=== PATIENT | female | born 1945 | race Caucasian/White ===

== ENCOUNTER 2017-04-28 18:05 | Inpatient (IN) | payer MEDICARE ==
[~2017-04-28] VITALS: Ht 167.6 cm; Wt 81.6 kg
[2017-04-28 20:00] VITALS: BP 121/60; RESP 18; Ht 167.6 cm; Wt 81.6 kg
[2017-04-28] MEDS ORDERED: LORAZEPAM 0.5 MG TAB PO PRN (20:00)
[2017-04-28] MEDS: BUPROPION (SR) 150 MG TAB PO SCH (21:16)
[2017-04-28] MEDS: ATORVASTATIN 20 MG TAB PO SCH (21:16)
[2017-04-28] MEDS: traZODone 100 MG TAB PO SCH (21:17)
[2017-04-28] MEDS: RISPERIDONE 0.25 MG TAB PO SCH (21:17)
[2017-04-28] MEDS: FAMOTIDINE 20 MG TAB PO SCH (21:17)
[2017-04-28 23:28] LABS: ADD UMIC YES; UR ASCORBIC ACID NEGATIVE (NEGATIVE); UR BACTERIA FEW /HPF (NONE SEEN); UR BILIRUBIN (Dip) NEGATIVE (NEGATIVE); UR BLOOD (Dip) NEGATIVE (NEGATIVE); UR CLARITY CLEAR (CLEAR); UR COLOR YELLOW (YELLOW); UR GLUCOSE (Dip) NEGATIVE (NEGATIVE); UR KETONES (Dip) NEGATIVE (NEGATIVE); UR LEUKOCYTE ESTERASE (Dip) 2+ Leu/ul (NEGATIVE); UR MUCUS FEW /HPF (NONE SEEN); UR NITRITE (Dip) NEGATIVE (NEGATIVE); UR RBC 3 /HPF (0-5); UR SPECIFIC GRAVITY (Dip) 1.015 (1.003-1.030); UR SQUAMOUS EPITHELIAL CELL FEW /HPF (FEW); UR TOTAL PROTEIN (Dip) NEGATIVE (NEGATIVE); UR UROBILINOGEN (Dip) 2+ mg/dL (NEGATIVE)
[2017-04-29] MEDS ORDERED: LACTULOSE 30ML CUP PO PRN (00:30)
[2017-04-29] MEDS ORDERED: ACETAMINOPHEN 325 MG TAB PO PRN (00:30)
[2017-04-29] MEDS ORDERED: BISACODYL 10 MG SUPP PR PRN (00:30)
[2017-04-29] MEDS ORDERED: MAGNESIUM HYDROXIDE 30ML CUP PO PRN (00:30)
[2017-04-29 02:00] VITALS: BP 128/64; RESP 18
[2017-04-29 07:06] LABS: BASOPHILS % 0.7 % (0.0-2.0); EOSINOPHILS # 0.2 10^3/ul (0.0-0.5); EOSINOPHILS % 3.8 % (0.0-7.0); HEMATOCRIT 40.7 % (37.0-47.0); HEMOGLOBIN 13.4 g/dl (12.0-16.0); LYMPHOCYTES # 1.5 10^3/ul (0.8-2.9); MEAN CORPUSCULAR HEMOGLOBIN 35.1 pg (29.0-33.0); MEAN CORPUSCULAR HGB CONC 32.9 g/dl (32.0-37.0); MEAN CORPUSCULAR VOLUME 106.5 fl (82.0-101.0); MEAN PLATELET VOLUME 9.9 fl (7.4-10.4); MONOCYTE # 0.8 10^3/ul (0.3-0.9); MONOCYTES % 13.7 % (0.0-11.0); NEUTROPHIL # 3.4 10^3/ul (1.6-7.5); NEUTROPHILS % 56.5 % (39.0-77.0); PLATELET COUNT 160 10^3/UL (140-415); RED BLOOD COUNT 3.82 10^6/ul (4.20-5.40); RED CELL DISTRIBUTION WIDTH 13.2 % (11.5-14.5); WHITE BLOOD COUNT 6.1 10^3/ul (4.8-10.8)
[2017-04-29 07:27] LABS: ALBUMIN 2.8 g/dl (3.3-4.9); ALBUMIN/GLOBULIN RATIO 0.82; BILIRUBIN,INDIRECT 0.3 mg/dl (0-1.1); BILIRUBIN,TOTAL 0.3 mg/dl (0.2-1.3); CALCIUM 9.1 mg/dl (8.4-10.2); CREATININE 0.64 mg/dl (0.44-1.00); TOTAL PROTEIN 6.2 g/dl (6.1-8.1)
[2017-04-29 07:30] VITALS: BP 101/52; RESP 18
[2017-04-29] MEDS ORDERED: INFLUENZA VIRUS VACCINE 0.5 ML (DISPENSING) IM* ONE (09:00)
[2017-04-29] MEDS: DULOXETINE 30 MG CAP DR PO SCH (10:26)
[2017-04-29] MEDS: FAMOTIDINE 20 MG TAB PO SCH ×2 (10:26→20:50)
[2017-04-29] MEDS: ESCITALOPRAM 10 MG TAB PO SCH (10:26)
[2017-04-29] MEDS: DOCUSATE SODIUM 100 MG CAP PO SCH ×2 (10:27→20:50)
[2017-04-29] MEDS: ASPIRIN (EC) 81 MG TAB PO SCH (10:27)
--- NOTE | 2017-04-29 11:17 | HP ---
DATE OF ADMISSION: 04/28/2017 CHIEF COMPLAINT: CVA. HISTORY OF PRESENT ILLNESS: This is a 72-year-old female with a past medical history of dyslipidemi a who presented to an outside hospital with difficulty speaking. The patient's history began approx imately 6 days prior to admission when she had a fall. The patient described left leg tingling and numbness and unsteadiness. The patient also developed confusion and got lost driving home. The eugenio toure was then noted to have expressive aphasia and inability to stand. The patient was brought in t o an outside hospital Emergency Room where a CT scan of the head was negative for acute CVA. The lizzeth dick was seen by neurology and was clinically diagnosed with CVA. An MRI and MRA of the brain was ordered and was reported as not having any significant findings, although the actual report is not b efore me. The patient, however, had a significant decline in functional mobility from her premorbid state and as a result was transferred to [facility] acute rehab for continued care. Upon my evaluation of the patient at this time, she is currently stable. Denies any fevers, chills, nausea, vomiting, no shortness of breath. PAST MEDICAL HISTORY: History of dyslipidemia, history of depression. PAST SURGICAL HISTORY: None. ALLERGIES: NO KNOWN DRUG ALLERGIES. FAMILY HISTORY: Noncontributory. SOCIAL HISTORY: Does not drink, smoke or do drugs. MEDICATIONS: The patient's medications have been reviewed. REVIEW OF SYSTEMS: A 14-point review of systems was conducted. Pertinent positives stated in HPI, otherwise negative. PHYSICAL EXAMINATION: VITAL SIGNS: Show blood pressure 101/52, pulse , respirations , temperature 97.8. HEENT: Head is normocephalic. NECK: Supple. HEART: Regular rate. LUNGS: Show diminished breath sounds at base. ABDOMEN: Soft, nontender to palpation without rebound or guarding. EXTREMITIES: Negative for clubbing, cyanosis, edema. DERMATOLOGIC: No rashes. MUSCULOSKELETAL: No joint effusions. NEUROLOGIC: Patient has noted weakness, no obvious focal deficits. MEDICATIONS: The patient's medications have been reviewed. LABORATORY DATA: Shows white count 6.1, hemoglobin 13.4, platelet count is 160. Sodium 143, potass ium 4.0, BUN 16, creatinine 0.6, alkaline phosphatase 213. ASSESSMENT AND PLAN: This is a 72-year-old female who presents with: 1. Acute cerebrovascular accident. The patient is clinically stable. Plan is to continue current. Continue aspirin, Lipitor, continue physical therapy, monitor closely. 2. Dyslipidemia. Continue statin therapy. 3. History of fibromyalgia. Continue medical management with Cymbalta and Lexapro. 4. Depression and anxiety. Continue Lexapro and Ativan. 5. Gastrointestinal and deep venous thrombosis prophylaxis. Continue Pepcid and sequential leg squ eezers. Please note I spent over 25 minutes of face to face time with the patient and patient is FULL CODE. Dictated By: LISSET WORTHY/ARVIND Conf#: [id number] DID#: [id number]
[2017-04-29] MEDS ORDERED: PENDING SANTYL ORDER FOR WOUND CARE XX PRN (12:00)
--- NOTE | 2017-04-29 12:29 | CONS ---
DATE OF ADMISSION: 04/28/2017 DATE OF CONSULTATION: 04/29/2017 TYPE OF CONSULTATION: Rehabilitation post-admission physician evaluation. REHABILITATION IMPAIRMENT CATEGORY: Acute cerebrovascular accident. ACTIVE COMORBIDITIES: 1. Right hip contusion status post fall. 2. Fibromyalgia. 3. Hyperlipidemia. 4. Hypertension. 5. Impairments in self-care, mobility, and communication. HISTORY OF PRESENT ILLNESS: The patient is a pleasant 72-year-old right-handed female with a histor y of hyperlipidemia, who is admitted to [facility] with notable expressive aphasia and generalized weakness. The patient reportedly had been noting some facial and arm tingling and numbness along with generalized weakness. A head CT was negative for bleed. The patient was follow ed closely by neurology. MRI of the brain was also negative for bleed. The patient was noted to osborn ve significant impairments in self-care and mobility as compared to the baseline, and has been clear ed to transfer to the rehabilitation unit for comprehensive interdisciplinary rehab care. FUNCTIONAL HISTORY: Prior to recent events, she was independent in self-care tasks and mobility. C urrently, the patient requires moderate to maximal assist for self-care and mobility tasks. SOCIAL HISTORY: The patient lives with family and will return there upon discharge. PAST MEDICAL HISTORY: 1. Hyperlipidemia. 2. Fibromyalgia. CURRENT MEDICATIONS: 1. Aspirin 81 mg p.o. daily. 2. Atorvastatin 20 mg p.o. daily. 3. Bupropion 150 mg p.o. b.i.d. 4. Duloxetine 30 mg p.o. daily. 5. Escitalopram 20 mg p.o. daily. 6. Famotidine 20 mg p.o. daily. 7. Risperdal 25 mg p.o. at bedtime. 8. Trazodone 100 mg p.o. at bedtime. ALLERGIES: THE PATIENT WITH NO KNOWN DRUG ALLERGIES. PHYSICAL EXAMINATION: VITAL SIGNS: She is currently afebrile with stable vital signs. HEENT: The extraocular motions are intact. Oropharynx clear. NECK: Supple. LUNGS: Clear anteriorly. CARDIAC: S1, S2. ABDOMEN: Soft, nontender, positive bowel sounds. NEUROLOGIC: She is awake and alert. She is oriented to person and hospital. She does have short d ecreased 3 object recall. She does follow simple 1-step commands. She has antigravity strength in bilateral upper extremity and lower extremity. She does have impaired dynamic balance. PLAN: The patient has been admitted for comprehensive interdisciplinary acute rehab and is anticipa luis to tolerate 3 hours of daily therapy in divided doses for at least 5/7 days a week. The treatme nt plan will include: 1. Physical therapy to focus on bed mobility, transfers, and household ambulation with the goal of having the patient reach a standby assist level. 2. Occupational therapy to focus on hygiene, grooming, dressing, bathing, and toileting activities with the goal of having the patient reach standby assist level. 3. Speech therapy for full cognitive assessment in addition to communication assessment and trainin g with the goal of having the patient return to baseline cognition, return to baseline communication skills, and meet nutritional needs by mouth. 4. Rehabilitation nursing for carryover of therapeutic interventions, with the goal of continent of bowel and bladder, and the goal of patient and family education with regard to the aforementioned i ssues. ESTIMATED LENGTH OF STAY: 14 days. DISPOSITION GOAL: Home. I acknowledge that I performed a full physical examination on this patient within 24 hours of admiss ion to the rehabilitation unit. I believe the patient is a good candidate for comprehensive interdi sciplinary rehab care and is anticipated to make reasonable goals in a reasonable period of time as outlined above. REHABILITATION BARRIER: Right hip contusion. INTERVENTION FOR BARRIER: Interdisciplinary rehabilitation. Dictated By: XIOMARA LOPEZ/ARVIND Conf#: [id number] DID#: [id number]
[2017-04-29 14:00] VITALS: BP 116/58; RESP 18
[2017-04-29] MEDS: BUPROPION (SR) 150 MG TAB PO SCH ×2 (14:59→20:49)
[2017-04-29 20:00] VITALS: BP 117/57; RESP 18
[2017-04-29] MEDS: traZODone 100 MG TAB PO SCH (20:49)
[2017-04-29] MEDS: SENNA TAB PO SCH (20:50)
[2017-04-29] MEDS: ACETAMINOPHEN 325 MG TAB PO PRN (20:50)
[2017-04-29] MEDS: ATORVASTATIN 20 MG TAB PO SCH (20:50)
[2017-04-29] MEDS: RISPERIDONE 0.25 MG TAB PO SCH (21:00)
[2017-04-30 02:48] VITALS: BP 120/65; RESP 18
[2017-04-30 07:30] VITALS: BP 129/66; RESP 18
[2017-04-30] MEDS: ACETAMINOPHEN 325 MG TAB PO PRN (08:16)
[2017-04-30] MEDS: DULOXETINE 30 MG CAP DR PO SCH (08:17)
[2017-04-30] MEDS: ASPIRIN (EC) 81 MG TAB PO SCH (08:17)
[2017-04-30] MEDS: BUPROPION (SR) 150 MG TAB PO SCH ×2 (08:17→22:02)
[2017-04-30] MEDS: FAMOTIDINE 20 MG TAB PO SCH ×2 (08:17→22:02)
[2017-04-30] MEDS: ESCITALOPRAM 10 MG TAB PO SCH (08:17)
[2017-04-30] MEDS: DOCUSATE SODIUM 100 MG CAP PO SCH ×2 (08:17→22:03)
--- NOTE | 2017-04-30 10:18 | PN ---
DATE: 04/30/2017 SUBJECTIVE: The patient is stable. No events overnight. No fevers, chills, nausea, vomiting, no s hortness of breath. OBJECTIVE: VITAL SIGNS: Blood pressure is 120/68, respirations 18, pulse 72, temperature 98.5. HEENT: Head is normocephalic. NECK: Supple. HEART: Regular rate. LUNGS: Show diminished breath sounds at the base. ABDOMEN: Soft, nontender to palpation. No rebound or guarding. EXTREMITIES: Negative for clubbing, cyanosis, no edema. DERMATOLOGIC: No rashes. MUSCULOSKELETAL: No joint effusions. NEUROLOGIC: No change in exam. MEDICATIONS: The patient's medications have been reviewed. LABORATORY DATA: Has been reviewed. No new labs. ASSESSMENT AND PLAN: 1. Acute cerebrovascular accident. The patient is currently stable. Continue current medical zackary gement. Continue aspirin, Lipitor, physical therapy. 2. Dyslipidemia. Continue statin therapy. 3. Status fibromyalgia. Continue Cymbalta and Lexapro. 4. Depression and anxiety. Continue Lexapro, Ativan. 5. Gastrointestinal and deep venous thrombosis prophylaxis. Continue proton pump inhibitor and seq uential leg squeezers. Dictated By: LISSET WORTHY/ARVIND Conf#: [id number] DID#: [id number]
--- NOTE | 2017-04-30 11:50 | CONS ---
Date/Time of Note Date/Time of Note DATE: 04/30/17 TIME: 11:49 Consult Date/Type/Reason Admit Date/Time Apr 28, 2017 at 18:05 Initial Consult Date Subjective Patient motivated and in good spirits Objective Lungs clear abdomen soft min assist for ambulation Vital Signs Date Time Temp Pulse Resp B/P Pulse Ox O2 Delivery O2 Flow Rate FiO2 04/30/17 07:30 98.7 75 18 129/66 98 Intake and Output 04/29/17 04/29/17 04/30/17 15:00 23:00 07:00 Intake Total 420 ml 700 ml Output Total 1 ml Balance 419 ml 700 ml Results/Medications Result Diagram: 04/29/1761004/29/17610 Medications Current Medications Aspirin (Halfprin) 81 mg DAILY PO Last administered on 04/30/17 08:17; Admin Dose 81 MG; Start 04/29/17 at 09:00 Atorvastatin Calcium (Lipitor) 20 mg HS PO Last administered on 04/29/17 20: 50; Admin Dose 20 MG; Start 04/28/17 at 21:00 Bupropion HCl (Wellbutrin Sr) 150 mg BID PO Last administered on 04/30/17 08: 17; Admin Dose 150 MG; Start 04/28/17 at 21:00 Duloxetine HCl (Cymbalta) 30 mg DAILY PO Last administered on 04/30/17 08:17 ; Admin Dose 30 MG; Start 04/29/17 at 09:00 Escitalopram Oxalate (Lexapro) 20 mg DAILY PO Last administered on 04/30/17 08:17; Admin Dose 20 MG; Start 04/29/17 at 09:00 Famotidine (Pepcid) 20 mg Q12 PO Last administered on 04/30/17 08:17; Admin Dose 20 MG; Start 04/28/17 at 21:00 Lorazepam (Ativan) 0.5 mg DAILY PRN PO AGITATION/ANXIETY Last administered on 04/28/17 21:17; Admin Dose 0.5 MG; Start 04/28/17 at 20:00 Risperidone (Risperdal) 0.25 mg QHS PO Last administered on 04/29/17 21:00; Admin Dose 0.25 MG; Start 04/28/17 at 21:00 Trazodone HCl (Desyrel) 100 mg HS PO Last administered on 04/29/17 20:49; Admin Dose 100 MG; Start 04/28/17 at 21:00 Acetaminophen (Tylenol Tab) 650 mg Q4H PRN PO PAIN AND OR ELEVATED TEMP Last administered on 04/30/17 08:16; Admin Dose 650 MG; Start 04/28/17 at 20:00 Acetaminophen/ Hydrocodone Bitart ([place] (5/325)) 1 tab Q6H PRN PO PAIN LEVEL 4 -7; Start 04/28/17 at 20:00 Docusate Sodium (Colace) 100 mg BID PO Last administered on 04/30/17 08:17; Admin Dose 100 MG; Start 04/29/17 at 09:00 Senna (Senokot) 1 tab HS PO Last administered on 04/29/17 20:50; Admin Dose 1 TAB; Start 04/29/17 at 21:00 Acetaminophen (Tylenol Tab) 650 mg Q4H PRN PO PAIN; Start 04/29/17 at 00:30 Bisacodyl (Dulcolax Supp) 10 mg DAILY PRN [place] CONSTIPATION; Start 04/29/17 at 00:30 Magnesium Hydroxide (Milk Of Mag) 30 ml BID PRN PO CONSTIPATION; Start at 00:30 Lactulose (Enulose) 20 gm DAILY PRN PO CONSTIPATION; Start 04/29/17 at 00:30 Miscellaneous Information (Pending [facility] Order For Wound Care) This patient osborn... PRN PRN XX WOUND CARE; Start 04/29/17 at 12:00 Assessment/Plan Additional Assessment/Plan Rehabilitation- Acute cerebrovascular accident. Continue interdisciplinary treatment plan Right hip contusion status post fall. Fibromyalgia. Hyperlipidemia. Hypertension. XIOMARA GONZALEZ MD Apr 30, 2017 11:50
[2017-04-30 14:00] VITALS: BP 101/55; RESP 18
[2017-04-30 20:00] VITALS: BP 126/56; RESP 18
[2017-04-30] MEDS: ATORVASTATIN 20 MG TAB PO SCH (21:49)
[2017-04-30] MEDS: traZODone 100 MG TAB PO SCH (21:49)
[2017-04-30] MEDS: HYDROCODONE/APAP (5/325) TAB PO PRN (22:01)
[2017-04-30] MEDS: RISPERIDONE 0.25 MG TAB PO SCH (22:02)
[2017-04-30] MEDS: SENNA TAB PO SCH (22:02)
[2017-05-01 02:00] VITALS: BP 122/62; RESP 18
[2017-05-01 07:30] VITALS: BP 128/61; RESP 18
[2017-05-01] MEDS: ASPIRIN (EC) 81 MG TAB PO SCH (08:40)
[2017-05-01] MEDS: BUPROPION (SR) 150 MG TAB PO SCH ×2 (08:40→20:21)
[2017-05-01] MEDS: DULOXETINE 30 MG CAP DR PO SCH (08:40)
[2017-05-01] MEDS: ESCITALOPRAM 10 MG TAB PO SCH (08:41)
[2017-05-01] MEDS: FAMOTIDINE 20 MG TAB PO SCH ×2 (08:41→20:21)
[2017-05-01] MEDS: DOCUSATE SODIUM 100 MG CAP PO SCH ×2 (08:41→20:21)
--- NOTE | 2017-05-01 10:55 | CONS ---
Date/Time of Note Date/Time of Note DATE: 05/01/17 TIME: 10:00 Consult Date/Type/Reason Admit Date/Time Apr 28, 2017 at 18:05 Subjective remains motivated for all activities Objective pulm-cta min/cga ambulation Vital Signs Date Time Temp Pulse Resp B/P Pulse Ox O2 Delivery O2 Flow Rate FiO2 05/01/17 07:30 98.7 63 18 128/61 97 Intake and Output 04/30/17 04/30/17 05/01/17 15:00 23:00 07:00 Intake Total 900 ml Balance 900 ml Results/Medications Result Diagram: 04/29/17 0611 04/29/17 0611 Medications Current Medications Aspirin (Halfprin) 81 mg DAILY PO Last administered on 05/01/17 08:40; Admin Dose 81 MG; Start 04/29/17 at 09:00 Atorvastatin Calcium (Lipitor) 20 mg HS PO Last administered on 04/30/17 21: 49; Admin Dose 20 MG; Start 04/28/17 at 21:00 Bupropion HCl (Wellbutrin Sr) 150 mg BID PO Last administered on 05/01/17 08: 40; Admin Dose 150 MG; Start 04/28/17 at 21:00 Duloxetine HCl (Cymbalta) 30 mg DAILY PO Last administered on 05/01/17 08:40 ; Admin Dose 30 MG; Start 04/29/17 at 09:00 Escitalopram Oxalate (Lexapro) 20 mg DAILY PO Last administered on 05/01/17 08:41; Admin Dose 20 MG; Start 04/29/17 at 09:00 Famotidine (Pepcid) 20 mg Q12 PO Last administered on 05/01/17 08:41; Admin Dose 20 MG; Start 04/28/17 at 21:00 Lorazepam (Ativan) 0.5 mg DAILY PRN PO AGITATION/ANXIETY Last administered on 04/28/17 21:17; Admin Dose 0.5 MG; Start 04/28/17 at 20:00 Risperidone (Risperdal) 0.25 mg QHS PO Last administered on 04/30/17 22:02; Admin Dose 0.25 MG; Start 04/28/17 at 21:00 Trazodone HCl (Desyrel) 100 mg HS PO Last administered on 04/30/17 21:49; Admin Dose 100 MG; Start 04/28/17 at 21:00 Acetaminophen (Tylenol Tab) 650 mg Q4H PRN PO PAIN AND OR ELEVATED TEMP Last administered on 04/30/17 08:16; Admin Dose 650 MG; Start 04/28/17 at 20:00 Acetaminophen/ Hydrocodone Bitart ([place] (5/325)) 1 tab Q6H PRN PO PAIN LEVEL 4 -7 Last administered on 04/30/17 22:01; Admin Dose 1 TAB; Start 04/28/17 at 20:00 Docusate Sodium (Colace) 100 mg BID PO Last administered on 05/01/17 08:41; Admin Dose 100 MG; Start 04/29/17 at 09:00 Senna (Senokot) 1 tab HS PO Last administered on 04/30/17 22:02; Admin Dose 1 TAB; Start 04/29/17 at 21:00 Acetaminophen (Tylenol Tab) 650 mg Q4H PRN PO PAIN; Start 04/29/17 at 00:30 Bisacodyl (Dulcolax Supp) 10 mg DAILY PRN [place] CONSTIPATION; Start 04/29/17 at 00:30 Magnesium Hydroxide (Milk Of Mag) 30 ml BID PRN PO CONSTIPATION; Start at 00:30 Lactulose (Enulose) 20 gm DAILY PRN PO CONSTIPATION; Start 04/29/17 at 00:30 Miscellaneous Information ([facility]) This patient osborn... PRN PRN XX WOUND CARE; Start 04/29/17 at 12:00 Assessment/Plan Additional Assessment/Plan Rehabilitation- Acute cerebrovascular accident. Excellent progress with rehab program Right hip contusion status post fall. Fibromyalgia. Hyperlipidemia. Hypertension. XIOMARA GONZALEZ MD May 01, 2017 10:55
[2017-05-01] MEDS: HYDROCODONE/APAP (5/325) TAB PO PRN (11:23)
[2017-05-01 19:40] VITALS: BP 119/60; RESP 18
[2017-05-01] MEDS: traZODone 100 MG TAB PO SCH (20:21)
[2017-05-01] MEDS: SENNA TAB PO SCH (20:21)
[2017-05-01] MEDS: ATORVASTATIN 20 MG TAB PO SCH (20:21)
[2017-05-01] MEDS: RISPERIDONE 0.25 MG TAB PO SCH (20:21)
[2017-05-02 01:47] VITALS: BP 93/50; RESP 18
[2017-05-02 07:00] VITALS: BP 106/54; RESP 18
[2017-05-02] MEDS: DULOXETINE 30 MG CAP DR PO SCH (08:42)
[2017-05-02] MEDS: FAMOTIDINE 20 MG TAB PO SCH ×2 (08:42→20:34)
[2017-05-02] MEDS: DOCUSATE SODIUM 100 MG CAP PO SCH ×2 (08:42→20:34)
[2017-05-02] MEDS: ASPIRIN (EC) 81 MG TAB PO SCH (08:42)
[2017-05-02] MEDS: ESCITALOPRAM 10 MG TAB PO SCH (08:42)
[2017-05-02] MEDS: BUPROPION (SR) 150 MG TAB PO SCH ×2 (08:42→20:35)
[2017-05-02] MEDS: ACETAMINOPHEN 325 MG TAB PO PRN ×2 (09:58→22:20)
--- NOTE | 2017-05-02 15:24 | PN ---
DATE: 05/02/2017 SUBJECTIVE: The patient is stable. No events overnight. No fevers, chills, nausea, vomiting. OBJECTIVE: VITAL SIGNS: Blood pressure is 93/50, respiration 18, pulse 80, temperature 98.3. HEENT: Head is normocephalic. NECK: Supple. HEART: Regular rate. LUNGS: Show diminished breath sounds at base. ABDOMEN: Soft, nontender to palpation. No rebound or guarding. EXTREMITIES: Negative for clubbing, cyanosis, no edema. DERMATOLOGIC: No rashes. MUSCULOSKELETAL: No joint effusions. NEUROLOGIC: No change in exam. MEDICATIONS: The patient's medications have been reviewed. LABORATORY DATA: Has been reviewed. ASSESSMENT AND PLAN: 1. Acute cerebrovascular accident. The patient is currently stable. Continue current medical zackary gement. 2. Dyslipidemia. Continue statin therapy. 3. Fibromyalgia. Continue Cymbalta. 4. Depression and anxiety disorder. Continue Ativan. 5. Gastrointestinal and deep venous thrombosis prophylaxis. Continue proton pump inhibitor and seq uential leg squeezers. Dictated By: LISSET WORTHY/ARVIND Conf#: [id number] DID#: [id number]
[2017-05-02 20:09] VITALS: BP 126/60; RESP 18
[2017-05-02] MEDS: SENNA TAB PO SCH (20:34)
[2017-05-02] MEDS: ATORVASTATIN 20 MG TAB PO SCH (20:34)
[2017-05-02] MEDS: traZODone 100 MG TAB PO SCH (20:35)
[2017-05-02] MEDS: RISPERIDONE 0.25 MG TAB PO SCH (20:35)
[2017-05-03 02:31] VITALS: BP 95/52; RESP 18
[2017-05-03 07:30] VITALS: BP 123/59; RESP 18
--- NOTE | 2017-05-03 07:50 | PN ---
DATE: 05/01/2017 SUBJECTIVE: The patient is stable. No acute events overnight. OBJECTIVE: VITAL SIGNS: Blood pressure is 120/61, pulse 63, temperature 98.7, respirations 18. HEENT: Head is normocephalic. NECK: Supple. HEART: Regular rate. LUNGS: Show diminished breath sounds at base. ABDOMEN: Soft, nontender to palpation. No rebound or guarding. EXTREMITIES: Negative for clubbing, cyanosis. No edema. DERMATOLOGIC: No rashes. MUSCULOSKELETAL: No joint effusions. NEUROLOGIC: No change in exam. MEDICATIONS: The patient's medications have been reviewed. LABORATORY DATA: Has been reviewed. No new labs. ASSESSMENT: 1. Acute cerebrovascular accident, the patient is currently stable. Continue medical management. 2. Dyslipidemia. Continue statin therapy. 3. Fibromyalgia. Continue Cymbalta and Lexapro. 4. Depression and anxiety. Continue current treatment plan. 5. Gastrointestinal and DVT prophylaxis. Dictated By: LISSET JACOBSON DO NR/ARVIND Conf#: [id number] DID#: [id number] CC: XIOMARA GONZALEZ MD;*EndCC*
[2017-05-03] MEDS: ESCITALOPRAM 10 MG TAB PO SCH (08:43)
[2017-05-03] MEDS: DULOXETINE 30 MG CAP DR PO SCH (08:43)
[2017-05-03] MEDS: ASPIRIN (EC) 81 MG TAB PO SCH (08:43)
[2017-05-03] MEDS: DOCUSATE SODIUM 100 MG CAP PO SCH ×2 (08:43→20:43)
[2017-05-03] MEDS: BUPROPION (SR) 150 MG TAB PO SCH ×2 (08:43→20:43)
[2017-05-03] MEDS: FAMOTIDINE 20 MG TAB PO SCH ×2 (08:43→20:43)
--- NOTE | 2017-05-03 09:20 | PN ---
DATE: 05/03/2017 SUBJECTIVE: The patient is stable. No events overnight. No fevers, chills, nausea, vomiting. OBJECTIVE: VITAL SIGNS: Blood pressure is 127/60, pulse 72, respiration 18, temperature 98.2. HEENT: Head is normocephalic. NECK: Supple. HEART: Regular rate. LUNGS: Show diminished breath sounds at base. ABDOMEN: Soft, nontender to palpation. No rebound or guarding. EXTREMITIES: Negative for clubbing, cyanosis, no edema. DERMATOLOGIC: No rashes. MUSCULOSKELETAL: No joint effusions. NEUROLOGIC: No change in exam. MEDICATIONS: The patient's medications have been reviewed. LABORATORY DATA: Has been reviewed. No new labs. ASSESSMENT AND PLAN: 1. Acute cerebrovascular accident. The patient is currently stable. Continue current medical zackary gement. 2. Dyslipidemia. Continue statin therapy. 3. Status fibromyalgia. Continue Cymbalta and Lexapro b.i.d. 4. Depression and anxiety. Continue current treatment plan. 5. Gastrointestinal and deep venous thrombosis prophylaxis. Dictated By: LISSET WORTHY/ARVIND Conf#: [id number] DID#: [id number]
--- NOTE | 2017-05-03 12:28 | CONS ---
Date/Time of Note Date/Time of Note DATE: 05/03/17 TIME: 12:28 Consult Date/Type/Reason Admit Date/Time Apr 28, 2017 at 18:05 Objective Vital Signs Date Time Temp Pulse Resp B/P Pulse Ox O2 Delivery O2 Flow Rate FiO2 05/03/17 07:30 98.4 69 18 123/59 96 Intake and Output 05/02/17 05/02/17 05/03/17 15:00 23:00 07:00 Intake Total 600 ml Balance 600 ml INTERDISCIPLINARY TEAM CONFERENCE BOWEL- Cont BLADDER-Cont SKIN- intact OT- DRESSING-min BATHING-min TOILETING-min PT- BED MOBILITY-cga TRANSFERS-cga AMBULATION-cga 80 feet SPEECH- COGNITIOs DYPHAGIA-regular and thin liquid A/P- Interdisciplinary team conference held today. Please see interdisciplinary sheet. Working toward d.c. on 05/05 with post discharge follow up of physical therapy, occupational therapy. Results/Medications Result Diagram: 04/29/17 0611 04/29/17 0611 Medications Current Medications Aspirin (Halfprin) 81 mg DAILY PO Last administered on 05/03/17 08:43; Admin Dose 81 MG; Start 04/29/17 at 09:00 Atorvastatin Calcium (Lipitor) 20 mg HS PO Last administered on 05/02/17 20: 34; Admin Dose 20 MG; Start 04/28/17 at 21:00 Bupropion HCl (Wellbutrin Sr) 150 mg BID PO Last administered on 05/03/17 08: 43; Admin Dose 150 MG; Start 04/28/17 at 21:00 Duloxetine HCl (Cymbalta) 30 mg DAILY PO Last administered on 05/03/17 08:43 ; Admin Dose 30 MG; Start 04/29/17 at 09:00 Escitalopram Oxalate (Lexapro) 20 mg DAILY PO Last administered on 05/03/17 08:43; Admin Dose 20 MG; Start 04/29/17 at 09:00 Famotidine (Pepcid) 20 mg Q12 PO Last administered on 05/03/17 08:43; Admin Dose 20 MG; Start 04/28/17 at 21:00 Lorazepam (Ativan) 0.5 mg DAILY PRN PO AGITATION/ANXIETY Last administered on 04/28/17 21:17; Admin Dose 0.5 MG; Start 04/28/17 at 20:00 Risperidone (Risperdal) 0.25 mg QHS PO Last administered on 05/02/17 20:35; Admin Dose 0.25 MG; Start 04/28/17 at 21:00 Trazodone HCl (Desyrel) 100 mg HS PO Last administered on 05/02/17 20:35; Admin Dose 100 MG; Start 04/28/17 at 21:00 Acetaminophen (Tylenol Tab) 650 mg Q4H PRN PO PAIN AND OR ELEVATED TEMP Last administered on 05/02/17 22:20; Admin Dose 650 MG; Start 04/28/17 at 20:00 Acetaminophen/ Hydrocodone Bitart ([place] (5/325)) 1 tab Q6H PRN PO PAIN LEVEL 4 -7 Last administered on 05/01/17 11:23; Admin Dose 1 TAB; Start 04/28/17 at 20:00 Docusate Sodium (Colace) 100 mg BID PO Last administered on 05/03/17 08:43; Admin Dose 100 MG; Start 04/29/17 at 09:00 Senna (Senokot) 1 tab HS PO Last administered on 05/02/17 20:34; Admin Dose 1 TAB; Start 04/29/17 at 21:00 Acetaminophen (Tylenol Tab) 650 mg Q4H PRN PO PAIN; Start 04/29/17 at 00:30 Bisacodyl (Dulcolax Supp) 10 mg DAILY PRN [place] CONSTIPATION; Start 04/29/17 at 00:30 Magnesium Hydroxide (Milk Of Mag) 30 ml BID PRN PO CONSTIPATION; Start at 00:30 Lactulose (Enulose) 20 gm DAILY PRN PO CONSTIPATION; Start 04/29/17 at 00:30 Miscellaneous Information (Pending [facility] Order For Wound Care) This patient osborn... PRN PRN XX WOUND CARE; Start 04/29/17 at 12:00 XIOMARA GONZALEZ MD May 03, 2017 12:28
[2017-05-03 14:00] VITALS: BP 103/53; RESP 18
[2017-05-03 20:00] VITALS: BP 103/53; RESP 18
[2017-05-03] MEDS: ATORVASTATIN 20 MG TAB PO SCH (20:43)
[2017-05-03] MEDS: SENNA TAB PO SCH (20:43)
[2017-05-03] MEDS: RISPERIDONE 0.25 MG TAB PO SCH (20:43)
[2017-05-03] MEDS: traZODone 100 MG TAB PO SCH (20:43)
[2017-05-04 02:12] VITALS: BP 109/62; RESP 18
[2017-05-04 07:00] VITALS: BP 112/59; RESP 18
[2017-05-04] MEDS: BUPROPION (SR) 150 MG TAB PO SCH ×2 (08:18→21:39)
[2017-05-04] MEDS: DOCUSATE SODIUM 100 MG CAP PO SCH ×2 (08:18→21:38)
[2017-05-04] MEDS: DULOXETINE 30 MG CAP DR PO SCH (08:18)
[2017-05-04] MEDS: FAMOTIDINE 20 MG TAB PO SCH ×2 (08:19→21:39)
[2017-05-04] MEDS: HYDROCODONE/APAP (5/325) TAB PO PRN (08:19)
[2017-05-04] MEDS: ASPIRIN (EC) 81 MG TAB PO SCH (08:19)
[2017-05-04] MEDS: ESCITALOPRAM 10 MG TAB PO SCH (08:19)
--- NOTE | 2017-05-04 09:06 | PN ---
DATE: 05/04/2017 SUBJECTIVE: The patient is stable. No events overnight. Denies any fevers, chills, nausea, vomiti ng, no shortness of breath. OBJECTIVE: VITAL SIGNS: Blood pressure is 112/59, temperature 98.0, pulse 72, respiration 18. HEENT: Head is normocephalic. NECK: Supple. HEART: Regular rate. LUNGS: Show diminished breath sounds at base. ABDOMEN: Soft, nontender to palpation. No rebound or guarding. EXTREMITIES: Negative for clubbing, cyanosis, edema. DERMATOLOGIC: No rashes. MUSCULOSKELETAL: No joint effusions. NEUROLOGIC: No change in exam. MEDICATIONS: The patient's medications have been reviewed. LABORATORY DATA: Has been reviewed. ASSESSMENT AND PLAN: 1. Acute cerebrovascular accident. The patient is currently stable. Continue current medical zackary gement. 2. Dyslipidemia. Continue statin therapy. 3. Fibromyalgia. Continue Cymbalta and Lexapro. 4. Depression and anxiety. Continue current treatment plan. 5. Gastrointestinal and deep venous thrombosis prophylaxis. Dictated By: LISSET WORTHY/ARVIND Conf#: [id number] DID#: [id number]
--- NOTE | 2017-05-04 11:48 | CONS ---
Date/Time of Note Date/Time of Note DATE: 05/04/17 TIME: 11:46 Consult Date/Type/Reason Admit Date/Time Apr 28, 2017 at 18:05 Subjective Patient motivated, in good spirits Objective sba with transfers and ambulation Vital Signs Date Time Temp Pulse Resp B/P Pulse Ox O2 Delivery O2 Flow Rate FiO2 05/04/17 07:00 98.0 72 18 112/59 97 Intake and Output 05/03/17 05/03/17 05/04/17 15:00 23:00 07:00 Intake Total 540 ml 1100 ml Output Total 400 ml Balance 540 ml 700 ml Results/Medications Medications Current Medications Aspirin (Halfprin) 81 mg DAILY PO Last administered on 05/04/17 08:19; Admin Dose 81 MG; Start 04/29/17 at 09:00 Atorvastatin Calcium (Lipitor) 20 mg HS PO Last administered on 05/03/17 20: 43; Admin Dose 20 MG; Start 04/28/17 at 21:00 Bupropion HCl (Wellbutrin Sr) 150 mg BID PO Last administered on 05/04/17 08: 18; Admin Dose 150 MG; Start 04/28/17 at 21:00 Duloxetine HCl (Cymbalta) 30 mg DAILY PO Last administered on 05/04/17 08:18 ; Admin Dose 30 MG; Start 04/29/17 at 09:00 Escitalopram Oxalate (Lexapro) 20 mg DAILY PO Last administered on 05/04/17 08:19; Admin Dose 20 MG; Start 04/29/17 at 09:00 Famotidine (Pepcid) 20 mg Q12 PO Last administered on 05/04/17 08:19; Admin Dose 20 MG; Start 04/28/17 at 21:00 Lorazepam (Ativan) 0.5 mg DAILY PRN PO AGITATION/ANXIETY Last administered on 04/28/17 21:17; Admin Dose 0.5 MG; Start 04/28/17 at 20:00 Risperidone (Risperdal) 0.25 mg QHS PO Last administered on 05/03/17 20:43; Admin Dose 0.25 MG; Start 04/28/17 at 21:00 Trazodone HCl (Desyrel) 100 mg HS PO Last administered on 05/03/17 20:43; Admin Dose 100 MG; Start 04/28/17 at 21:00 Acetaminophen (Tylenol Tab) 650 mg Q4H PRN PO PAIN AND OR ELEVATED TEMP Last administered on 05/02/17 22:20; Admin Dose 650 MG; Start 04/28/17 at 20:00 Acetaminophen/ Hydrocodone Bitart ([place] (5/325)) 1 tab Q6H PRN PO PAIN LEVEL 4 -7 Last administered on 05/04/17 08:19; Admin Dose 1 TAB; Start 04/28/17 at 20:00 Docusate Sodium (Colace) 100 mg BID PO Last administered on 05/04/17 08:18; Admin Dose 100 MG; Start 04/29/17 at 09:00 Senna (Senokot) 1 tab HS PO Last administered on 05/03/17 20:43; Admin Dose 1 TAB; Start 04/29/17 at 21:00 Acetaminophen (Tylenol Tab) 650 mg Q4H PRN PO PAIN; Start 04/29/17 at 00:30 Bisacodyl (Dulcolax Supp) 10 mg DAILY PRN [place] CONSTIPATION; Start 04/29/17 at 00:30 Magnesium Hydroxide (Milk Of Mag) 30 ml BID PRN PO CONSTIPATION; Start at 00:30 Lactulose (Enulose) 20 gm DAILY PRN PO CONSTIPATION; Start 04/29/17 at 00:30 Miscellaneous Information (Pending Santyl Order For Wound Care) This patient osborn... PRN PRN XX WOUND CARE; Start 04/29/17 at 12:00 Assessment/Plan Additional Assessment/Plan Rehabilitation- Acute cerebrovascular accident. Excellent progress, anticipate dc home tomorrow Right hip contusion status post fall. Fibromyalgia. Hyperlipidemia. Hypertension. XIOMARA GONZALEZ MD May 04, 2017 11:48
[2017-05-04 20:45] VITALS: BP 109/59; RESP 18
[2017-05-04] MEDS: RISPERIDONE 0.25 MG TAB PO SCH (21:39)
[2017-05-04] MEDS: traZODone 100 MG TAB PO SCH (21:39)
[2017-05-04] MEDS: SENNA TAB PO SCH (21:39)
[2017-05-04] MEDS: ATORVASTATIN 20 MG TAB PO SCH (21:39)
[2017-05-05 02:00] VITALS: BP 95/56; RESP 18
[2017-05-05 07:00] VITALS: BP 113/56; RESP 18
--- NOTE | 2017-05-05 09:26 | PN ---
DATE: 05/05/2017 SUBJECTIVE: The patient stable, no events overnight. No fevers, chills, nausea or vomiting. PHYSICAL EXAMINATION: VITAL SIGNS: Blood pressure 95/56, respirations 18, pulse 65, temperature 97.8. HEENT: Head is normocephalic. NECK: Supple. HEART: Regular rate. LUNGS: Show diminished breath sounds at the base. ABDOMEN: Soft, nontender to palpation. No rebound, guarding. EXTREMITIES: Negative for clubbing, cyanosis, no edema DERMATOLOGIC: No rashes. MUSCULOSKELETAL: No joint effusion. NEUROLOGIC: No change in exam. MEDICATIONS: The patient's medications have been reviewed. LABORATORY DATA: Has been reviewed. No new labs. ASSESSMENT: 1. Acute . The patient is currently stable. Continue medical management. 2. Dyslipidemia. Continue statin therapy. 3. Fibromyalgia. Continue Cymbalta and Lexapro. 4. Depression, anxiety. Continue current treatment plan. 5. Gastrointestinal/deep venous thrombosis prophylaxis. Dictated By: LISSET WORTHY/ARVIND Conf#: [id number] DID#: [id number]
[2017-05-05] MEDS: ESCITALOPRAM 10 MG TAB PO SCH (09:41)
[2017-05-05] MEDS: ASPIRIN (EC) 81 MG TAB PO SCH (09:41)
[2017-05-05] MEDS: FAMOTIDINE 20 MG TAB PO SCH (09:41)
[2017-05-05] MEDS: DULOXETINE 30 MG CAP DR PO SCH (09:41)
[2017-05-05] MEDS: BUPROPION (SR) 150 MG TAB PO SCH (09:41)
[2017-05-05] MEDS: DOCUSATE SODIUM 100 MG CAP PO SCH (09:41)
--- NOTE | 2017-05-05 12:04 | DS ---
Date/Time of Note Date/Time of Note DATE: 05/05/17 TIME: 12:03 Discharge Summary Admission/Discharge Info Admit Date/Time Apr 28, 2017 at 18:05 Discharge Date/Time Discharge Diagnosis 1.Acute cerebrovascular accident. 2. Right hip contusion status post fall. 3. Fibromyalgia. 4. Hyperlipidemia. 5. Hypertension. 6. Improvements in self-care, mobility, and communication. Patient Condition: Good Hospital Course Patient was admitted for comprehensive interdisciplinary acute rehabilitation. Patient made steady functional gains and improved from a mod/ min level to a Modified Independent level for self care and mobility, including ambulating over 150 feet with the use of a front wheeled walker. Patient is being discharged home with recommendations for home health PT and OT follow up. DME recommendations: [facility]; [facility]; Shower Chair Patient will follow up with PMD upon DC. Primary Care Provider Care Physician XIOMARA Molina MD May 05, 2017 12:04
== END 2017-05-05 12:25 | disposition home health service (06) | DRG 57 ==
LOC: VRC 18:05
PROVIDERS: ADMIT Physical Medicine & Rehabilitation; ATTEND Internal Medicine Nephrology
DX: I69.359 Hemiplegia and hemiparesis following cerebral infarction affecting unspecified side (principal); I69.320 Aphasia following cerebral infarction; I69.310 Attention and concentration deficit following cerebral infarction; I10 Essential (primary) hypertension; E78.5 Hyperlipidemia, unspecified; M79.7 Fibromyalgia; S70.01XD Contusion of right hip, subsequent encounter; Z91.81 History of falling
CPT/HCPCS: 80053; 81001; 85025; 87081; 87086; 90686; 92507; 92523; 92610; 97110; 97116; 97150; 97163; 97167; 97530; 97535